=== PATIENT | female | born 1985 | race American Indian/Alaskan Native ===

== ENCOUNTER 2018-04-01 08:48 | Emergency (ER) | payer OTHER ==
[2018-04-01 09:00] VITALS: BP 135/88
[2018-04-01 09:25] LABS: Basophils % (Auto) 0.7 % (0.0-1.8); Eosinophils # (Auto) 0.3 K/mm3 (0.0-0.4); Eosinophils % (Auto) 3.9 % (0.0-4.3); Hematocrit 39.7 % (30.3-42.9); Hemoglobin 13.4 gm/dl (10.1-14.3); Lymphocytes # (Auto) 2.8 K/mm3 (1.2-5.4); Lymphocytes % (Auto) 41.8 % (13.4-35.0); Mean Corpuscular HGB Conc 34 % (30-34); Mean Corpuscular Hemoglobin 30 pg (28-32); Mean Corpuscular Volume 90 fl (79-97); Monocytes # (Auto) 0.4 K/mm3 (0.0-0.8); Monocytes % (Auto) 6.4 % (0.0-7.3); Platelet Count 370 K/mm3 (140-440); Red Blood Count 4.41 M/mm3 (3.65-5.03); Red Cell Distribution Width 14.2 % (13.2-15.2)
[2018-04-01 09:30] LABS: Alanine Aminotransferase 11 units/L (7-56); Albumin 3.9 g/dL (3.9-5); BUN/Creatinine Ratio 10; Blood Urea Nitrogen 8 mg/dL (7-17); Calcium 9.1 mg/dL (8.4-10.2); Hemolysis Index 5; Lipase 35 units/L (13-60)
[2018-04-01 09:35] LABS: Bilirubin,Urine NEG (Negative); Blood,Urine NEG (Negative); Color,Urine Yellow (Yellow); Mucus,Urine FEW /HPF; Protein,Urine <15 mg/dL mg/dL (Negative); Urobilinogen,Urine < 2.0 mg/dL (<2.0); WBC,Urine < 1.0 /HPF (0.0-6.0)
[2018-04-01] MEDS ORDERED: NORCO 5/325 PO ONE (10:25)
[2018-04-01] MEDS ORDERED: ZOFRAN ODT PO ONE (10:25)
--- NOTE | 2018-04-01 10:27 | Emergency Department Report ---
Chief Complaint: Abdominal Pain Stated Complaint: LOWER ABDOMINAL PAIN Time Seen by Provider: 04/01/18 10:21 - HPI History of Present Illness: 32-year-old female presents to the emergency department with the complaint of lower abdominal pain that started upon waking this morning. It is currently 8 out of 10 in intensity and sharp. She denies any fever, dysuria, vaginal bleeding or discharge, problems with bowel movements, back pain. She does have some nausea without vomiting. She tried some Pepto-Bismol for her symptoms without relief. She did have a bowel movement this morning that did not relieve her symptoms. No recent travel or sick contacts at home. No past medical history and no primary care physician for follow-up. - ROS Review of Systems: Positive for nausea, lower abdominal pain and dizziness Negative for vomiting, dysuria, vaginal bleeding or discharge, constipation or diarrhea, back pain - Exam Vital Signs: Vital Signs 04/01/18 04/01/18 08:57 10:16 Temperature 98.1 F Pulse Rate 65 Respiratory 18 15 Rate Blood Pressure 135/88 O2 Sat by Pulse 100 Oximetry Physical Exam: Heart and lungs sounds are normal to auscultation. There is reproducible lower abdominal and upper pelvic tenderness to palpation. No guarding. MSE screening note: Focused history and physical exam performed. Due to findings the following was ordered: Patient's labs have been unremarkable and I do not see any particular labs that need to be ordered at this time. She will have a 2 view abdominal x-ray and a pelvic ultrasound. ED Medical Decision Making - Lab Data Result diagrams: 04/01/18 09:06 04/01/18 09:06 ED Disposition for MSE Condition: Stable Instructions: Abdominal Pain (ED) Referrals: THANH ANGUIANO [Other] - 3-5 Days
--- NOTE | 2018-04-01 10:59 | XRay Report ---
ABDOMEN, 2 views: History: Abdominal pain. There is no evidence of free air beneath the diaphragms. The gas pattern within the abdomen is unremarkable. There is no evidence of bowel dilatation, significant air-fluid levels, or pathologic calcifications. Organ shadows are unremarkable. IMPRESSION: Unremarkable abdomen.
--- NOTE | 2018-04-01 11:52 | Ultrasound Report ---
ULTRASOUND PELVIS DUPLEX DOPPLER COMPLETE ULTRASOUND TRANSVAGINAL HISTORY: Pelvic pain. COMPARISON: None. TECHNIQUE: Transabdominal and transvaginal ultrasound with color doppler interrogation. FINDINGS: The uterus and ovaries are normal size, contour and echotexture. No evidence for mass or cyst. The endometrium measures 9 mm. No pelvic fluid collection. Spectral Doppler waveforms demonstrate arterial perfusion to both ovaries. IMPRESSION: Unremarkable transabdominal and transvaginal pelvic ultrasounds.
--- NOTE | 2018-04-01 12:24 | Emergency Department Report ---
ED Abdominal Pain HPI - General Chief Complaint: Abdominal Pain Stated Complaint: LOWER ABDOMINAL PAIN Time Seen by Provider: 04/01/18 10:21 Source: patient Mode of arrival: Ambulatory Limitations: No Limitations - History of Present Illness Initial Comments: This is a 32-year-old female nontoxic, well nourished in appearance, no acute signs of distress presents to the ED with c/o of lower abdominal pain, nausea, and diarrhea. Patient stated that she ate pizza last night and then this morning started to become nauseated but denies any vomiting. Patient stated had a diarrhe this morning. Patient that she try Pepto-Bismol without relief. Patient denies any radiation of pain. Patient denies any fever, chills, urinary symptoms, headache, stiff neck, chest pain, shortness of breath, numbness or tingling. Patient denies any recent travels. Patient stated allergies to PCN. Denies PMH. MD Complaint: abdominal pain -: This morning Radiation: none Migration to: no migration Severity scale (0 -10): 2 Quality: cramping Consistency: now resolved Improves With: nothing Worsens With: nothing Context: possible food poisoning Associated Symptoms: nausea, diarrhea. denies: vomiting, fever, chills, constipation, dysuria, hematemesis, hematochezia, melena, hematuria, anorexia, syncope - Related Data Previous Rx's Medication Instructions Recorded Last Taken Type Ibuprofen [Motrin] 600 mg PO Q8H PRN #30 tablet 04/01/18 Unknown Rx Ondansetron [Zofran Odt] 4 mg PO Q8H PRN #20 tab.rapdis 04/01/18 Unknown Rx Allergies Allergy/AdvReac Type Severity Reaction Status Date / Time Penicillins Allergy Hives Verified 04/01/18 08:56 ED Review of Systems ROS: Stated complaint: LOWER ABDOMINAL PAIN Other details as noted in HPI Constitutional: denies: chills, fever Eyes: denies: eye pain, eye discharge, vision change ENT: denies: ear pain, throat pain Respiratory: denies: cough, shortness of breath, wheezing Cardiovascular: denies: chest pain, palpitations Endocrine: no symptoms reported Gastrointestinal: abdominal pain, nausea, diarrhea. denies: vomiting, constipation Genitourinary: denies: urgency, dysuria, discharge Musculoskeletal: denies: back pain, joint swelling, arthralgia Skin: denies: rash, lesions Neurological: denies: headache, weakness, paresthesias Psychiatric: denies: anxiety, depression Hematological/Lymphatic: denies: easy bleeding, easy bruising ED Past Medical Hx - Past Medical History Previous Medical History?: No - Surgical History Past Surgical History?: No - Social History Smoking Status: Current Every Day Smoker Substance Use Type: None - Medications Home Medications: Home Medications Medication Instructions Recorded Confirmed Last Taken Type Ibuprofen [Motrin] 600 mg PO Q8H PRN #30 tablet 04/01/18 Unknown Rx Ondansetron [Zofran Odt] 4 mg PO Q8H PRN #20 tab.rapdis 04/01/18 Unknown Rx ED Physical Exam - General Limitations: No Limitations General appearance: alert, in no apparent distress - Head Head exam: Present: atraumatic, normocephalic - Eye Eye exam: Present: normal appearance Pupils: Present: normal accommodation - ENT ENT exam: Present: normal exam, mucous membranes moist - Neck Neck exam: Present: normal inspection, full ROM. Absent: tenderness, meningismus, lymphadenopathy - Respiratory Respiratory exam: Present: normal lung sounds bilaterally. Absent: respiratory distress, wheezes, rales, rhonchi, stridor, chest wall tenderness, accessory muscle use, decreased breath sounds, prolonged expiratory - Cardiovascular Cardiovascular Exam: Present: regular rate, normal rhythm, normal heart sounds. Absent: irregular rhythm, systolic murmur, diastolic murmur, rubs, gallop - GI/Abdominal GI/Abdominal exam: Present: soft, tenderness (pelvic region), normal bowel sounds. Absent: distended, guarding, rebound, rigid, diminished bowel sounds - Expanded GI/Abdominal Exam Expanded GI/Abdominal exam: Absent: psoas sign, obturator sign, heel tap sign, Singh's sign, Rovsing's sign, tenderness at Mcburney's Point, ascites - Rectal Rectal exam: Present: deferred - Extremities Exam Extremities exam: Present: normal inspection, full ROM, normal capillary refill - Back Exam Back exam: Present: normal inspection, full ROM - Neurological Exam Neurological exam: Present: alert, oriented X3, normal gait - Psychiatric Psychiatric exam: Present: normal affect, normal mood - Skin Skin exam: Present: warm, dry, intact, normal color. Absent: rash ED Course Vital Signs 04/01/18 04/01/18 04/01/18 08:57 10:16 10:33 Temperature 98.1 F Pulse Rate 65 Respiratory 18 15 17 Rate Blood Pressure 135/88 O2 Sat by Pulse 100 Oximetry - Reevaluation(s) Reevaluation #1: 04/01/18 12:28 Patient is speaking in full sentences with no signs of distress noted. - Consultations Consultation #1: 04/01/18 12:28 Patient has been consulted with Dr. Anderson about patient history, physical exam, and labs/imaging studies and examined and screened patient and agrees to ED plan of care and discharge plan of care. ED Medical Decision Making - Lab Data Result diagrams: 04/01/18 09:06 04/01/18 09:06 - Medical Decision Making This is a 32-year-old female that presents with abdominal pain and nausea. Patient stable was examined by me. There is slight abdominal tenderness. No rebound tenderness. Labs obtained. Xray and US abdomen obtained and dictated by the radiologist. Patient received zofran which patient stated symptoms has resolved and subsided. A by mouth challenge of apple juice had been obtained and patient tolerated well with no nausea vomiting. Patient discharged with Zofran. Patient was instructed to increase hydration. Patient was referred to Follow-up with a primary care doctor in 3-5 days or if symptoms worsen and continue return to emergency room as soon as possible. At time of discharge, the patient does not seem toxic or ill in appearance. No acute signs of distress noted. Patient agrees to discharge treatment plan of care. No further questions noted by the patient. Critical care attestation.: If time is entered above; I have spent that time in minutes in the direct care of this critically ill patient, excluding procedure time. ED Disposition Clinical Impression: Nausea Abdominal pain Qualifiers: Abdominal location: unspecified location Qualified Code(s): R10.9 - Unspecified abdominal pain Disposition: DC-01 TO HOME OR SELFCARE Is pt being admited?: No Does the pt Need Aspirin: No Condition: Stable Instructions: Abdominal Pain (ED), Ondansetron (By mouth) Additional Instructions: Follow-up with a primary care doctor in 3-5 days or if symptoms worsen and continue return to emergency room as soon as possible. Prescriptions: Ibuprofen [Motrin] 600 mg PO Q8H PRN #30 tablet PRN Reason: Pain Ondansetron [Zofran Odt] 4 mg PO Q8H PRN #20 tab.rapdis PRN Reason: Nausea Referrals: THANH ANGUIANO [Other] - 3-5 Days PRIMARY CAREMD [Referring] - 3-5 Days KARLEY SOLANO MD [Staff Physician] - 3-5 Days [facility] [Outside] - 3-[address] [facility] [Outside] - 3-5 Days Forms: Work/School Release Form(ED)
== END 2018-04-01 12:36 | disposition home or self-care (01) ==
LOC: ED 08:48
DX: R11.0 Nausea (principal); R10.9 Unspecified abdominal pain; F17.200 Nicotine dependence, unspecified, uncomplicated; Z88.0 Allergy status to penicillin
CPT/HCPCS: 36415; 74019; 76830; 80053; 81001; 83690; 84703; 85025; 93975; Q0162